=== PATIENT | male | born 1955 | race African-American/Black ===

== ENCOUNTER → 2020-02-01 | Day surgery (SDC) | payer OTHER ==
--- NOTE | 2020-01-31 11:36 | Pre Op History & Physical ---
DATE OF SURGERY: 02/01/2020. CHIEF COMPLAINT: Lesion in the left ala of the nose. HISTORY OF PRESENT ILLNESS: This 64-year-old male has history of nasal obstruction for many years. He has a lesion in the left ala, which has been bleeding. This has been going on for about two months. The patient was seen in the ER with cauterization of the area, but lesion did not stop. CT scan of the paranasal sinuses that was done showed the patient has chronic sinusitis, deviated nasal septum to the left, did not show any lesion connecting more centrally. The patient has no history of blood dyscrasia. There is no obvious history of trauma to that region. Recently, the patient claimed that the lesion fell off, but not completely. A remnant still remain in the same location at around 10 o'clock region in the left ala. REVIEW OF SYSTEMS: System review showed no recent cardiovascular, respiratory, or GI problem. PAST MEDICAL HISTORY: The patient has history of hypertension. PAST SURGICAL HISTORY: The patient has surgery as a . ALLERGIES: HE HAS NO KNOWN ALLERGY TO MEDICATIONS. MEDICATIONS: He is on blood pressure medicine. SOCIAL HISTORY: Nonsmoker and a social drinker. FAMILY HISTORY: Noncontributory. PHYSICAL EXAMINATION: VITAL SIGNS: The patient's vital signs were within normal limits. He was seen with his mother. HEENT: Ear exam showed normal tympanic membrane bilaterally. Nasal exam showed deviated nasal septum, left side about 30%. The patient has a lesion in the ala about 10 to 11 o'clock on the left side. Oropharynx and oral cavity show 2+ tonsils bilaterally with no exudate or debris. NECK: Showed no lymph node or thyroid palpable. CHEST: Showed good air entry bilaterally. CARDIOVASCULAR: Showed S1, S2. No murmur noted. ASSESSMENT AND PLAN: Mr. Mckinney has lesion in the left ala initially was bleeding. The bleeding portion fell off, but the lesion persists. The treatment is excision of lesion with appropriate closure and other necessary procedure under endoscopic control. The complication of procedure includes, but not limited to bleeding, infection, TM perforation, bleeding, infection, septal perforation, septal hematoma, nasal valve collapse, airway compromise, poor cosmetic result, persistent recurrence of the problem. Alternatives will be continue observation and excision of lesion in the office setting. The patient has elected to undergo surgical procedure. MD LAUREL Donald/ARLYN /[id number] cc: Dr. Ramirez
[~2020-02-01] MED LIST: BENICAR20 MG PO; DEXAMETHASONE SOD PHOS INJ 4 MG/ML VIAL ONE; EPINEPHRINE HCL 1:1000 1ML 1 MG/ML AMP ONE; ETOMIDATE 2 MG/ML 10 ML INJ IV ONE; GLYCOPYRROLATE INJ 0.2 MG/ML VIAL ONE; LIDOCAINE 1% W/EPINEPHRINE 20 ML VIAL ONE; LIDOCAINE HCL 2% LOCAL INJ 5 ML SDV VIAL INJ ONE; NEOSTIGMINE 1 MG/ML 10ML VIAL ONE; ONDANSETRON HCL INJ 2MG/ML 2ML 2 MG/ML VIAL ONE; ROCURONIUM BROMIDE 10 MG/ML 5ML VIAL IV ONE; SEVOFLURANE INHAL SOLN 250 ML PEN BTL ONE; SUCCINYLCHOLINE CHLORIDE 20 MG/ML 10ML VIAL ONE
[2020-02-01 10:30] VITALS: BP 137/92
--- NOTE | 2020-02-01 10:33 | Operative Report ---
DATE OF PROCEDURE: 02/01/2020 SURGEON: Roberto Nixon MD CHIEF COMPLAINT: Lesion on left ala. POSTOPERATIVE DIAGNOSIS: Lesion on left ala. OPERATIVE PROCEDURE: Excision of left ala lesion with appropriate closure and rigid nasal endoscopy. ANESTHESIA: Anesthesiology Group. HISTORY OF PRESENT ILLNESS: This 64-year-old male, has a lesion in the left ala for a few months. Lesion has been bleeding and irritating to the patient. The patient was had the lesion cauterized in the ER, which did not help the condition. A few days ago, the main lesion fell off, but the remnant of the lesion still persists. It was decided that excision of the lesion with appropriate closure and rigid nasal endoscopy and other necessary procedure will be beneficial for him. On examination, the lesion was noted to be at the about 6 to 7 o'clock and ala on the left side. DESCRIPTION OF PROCEDURE: The patient was taken to the operating room, put under general anesthesia, endotracheally intubated. The nose was injected with 1% Xylocaine with 1:100,000 epinephrine for hemostasis. Epinephrine-soaked pledget was inserted in the nose and subsequently removed. Nasal hair and the ala were trimmed on both sides. Both nasal ala was examined, no abnormality was noted on the right nasal ala. The lesion was noted in about 6 to 7 o'clock on the left ala, this was excised. The lesion was sent for permanent section. Posterior flap was elevated in the submucosal plane and advanced anteriorly and this was closed using 4-0 chromic suture in interrupted fashion. Nasal endoscopy was used. The nasal endoscope was used to examine both nasal cavity and nasal ala. No other abnormality was noted. The patient was noted to have a deviated nasal septum anteriorly to the left side, this was not disturbed at this time. No other abnormality was noted in the nasopharynx or nasal cavity on either side. The patient tolerated the above procedure well with minimal blood loss. He was able to be transferred to recovery room in stable condition. Roberto Nixon MD DKH/MODL /[id number]
== END | disposition home or self-care (01) ==
LOC: OR 07:02
PROVIDERS: ATTEND Otolaryngology Otolaryngology/Facial Plastic Surgery
DX: D18.01 Hemangioma of skin and subcutaneous tissue (principal); J34.2 Deviated nasal septum; J32.9 Chronic sinusitis, unspecified; I10 Essential (primary) hypertension; R00.1 Bradycardia, unspecified; Z01.810 Encounter for preprocedural cardiovascular examination; Z01.812 Encounter for preprocedural laboratory examination; Z11.59 Encounter for screening for other viral diseases
CPT/HCPCS: 30117; 31231; 87635; 88305; 93005; J0171; J0330; J1100; J2001; J2405; J2710